=== PATIENT | female | born 1930 | race Asian ===

== ENCOUNTER 2016-09-28 15:23 | Inpatient (IN) | payer OTHER ==
[~2016-09-28] VITALS: Ht 154.9 cm; Wt 53.8 kg
[~2016-09-28 15:23] MED LIST: ACET-784 PO; ASCO100T12 PO; ASPI-556 PO; GLUC1TAB64 PO; HYDR25TA PO; LISI40TA4 PO; MULT1TAB28 PO; OMEG10005 PO; VITA100C5 PO
[2016-09-28] MEDS ORDERED: APIX2.5T PO (16:02)
[2016-09-28] MEDS ORDERED: SODIUM CHLORIDE 0.9% 1,000 ML IV ONE (16:15)
[2016-09-28 16:16] LABS: GLUCOSE,POINT OF CARE 168 MG/DL (70-110)
[2016-09-28 16:38] LABS: BASOPHILS % (AUTO) 1.3 % (0.0-2.0); EOSINOPHILS % (AUTO) 11.2 % (1.0-6.0); HEMATOCRIT 34.5 % (36-46); HEMOGLOBIN 11.2 g/dL (12.0-16.0); LYMPHOCYTES # (AUTO) 1.3 K/uL (1.0-4.8); LYMPHOCYTES % (AUTO) 22.7 % (22.0-44.0); MEAN CORPUSCULAR HGB CONC 32.4 G/dL (31.0-37.0); MEAN CORPUSCULAR VOLUME 99 fL (80-100); MONOCYTES # (AUTO) 0.4 K/uL (0.1-1.0); MONOCYTES % (AUTO) 6.1 % (2.0-9.0); NEUTROPHILS # (AUTO) 3.4 K/uL (1.8-7.7); NEUTROPHILS % (AUTO) 58.7 % (40.0-70.0); PLATELET COUNT (AUTO) 167 K/uL (150-450); RED BLOOD CELL COUNT(AUTO) 3.49 MIL/uL (4.00-5.20); RED CELL DISTRIBUTION WIDTH 14.5 % (11.5-14.5); WHITE BLOOD COUNT (AUTO) 5.8 K/uL (4.5-11.0)
[2016-09-28 16:50] LABS: ANION GAP 3 mmol/L (8-16); CALCIUM, TOTAL 8.5 mg/dL (8.8-10.5); CARBON DIOXIDE 28 mmol/L (22-29); CHLORIDE 107 mmol/L (98-107); CREATININE 1.41 mg/dL (0.60-1.30); GLOMERULAR FILTR. RATE CALC 35 mL/min (>60); POTASSIUM 4.2 mmol/L (3.5-5.1); SODIUM SERUM 138 mmol/L (136-145); UREA NITROGEN, BLOOD 27 mg/dL (7-18)
[2016-09-28 16:52] LABS: INR 1.1 (0.9-1.1); PROTHROMBIN TIME 11.3 SEC (9.4-11.6)
[2016-09-28 16:55] LABS: ALANINE AMINOTRANSFERASE 14 U/L (12-78); ALBUMIN 2.9 g/dL (3.4-5.0); ASPARTATE AMINOTRANSFERASE 14 U/L (15-37); BILIRUBIN,TOTAL 0.2 mg/dL (0.1-1.0); CREATINE KINASE, TOTAL 21 U/L (26-192); TOTAL PROTEIN, SERUM 6.8 g/dL (6.4-8.2)
[2016-09-28 16:58] LABS: TROPONIN I < 0.02 ng/mL (0.00-0.05)
[2016-09-28 17:09] LABS: AMMONIA < 10 umol/L (11-32)
[2016-09-28 17:14] LABS: B-TYPE NATRIURETIC PEPTIDE 117 pg/mL (0-100)
[2016-09-28 18:33] LABS: APPEARANCE,URINE TURBID (CLEAR); GLUCOSE, URINE (UA) NEGATIVE (NEGATIVE); KETONES,URINE NEGATIVE (NEGATIVE); LEUKOCYTE ESTERASE ,URINE LARGE (NEGATIVE); OCCULT BLOOD,URINE SMALL (NEGATIVE); PH,URINE 6.5 (5.0-8.0); PROTEIN,URINE TRACE (NEGATIVE)
[2016-09-28 18:34] LABS: ADD UA MICROSCOPIC YES
[2016-09-28 18:35] LABS: SQUAMOUS EPITHELIAL CELL,UR Few /LPF (None Seen); WBC,URINE >100 /HPF (0-5)
[2016-09-28] MEDS ORDERED: LEVOFLOXACIN 500 MG/D5% WATER 100 ML IV ONE (19:00)
[2016-09-28] MEDS ORDERED: ONDANSETRON HCL 4 MG/2 ML VIAL IVP PRN (19:45)
[2016-09-28] MEDS ORDERED: ACETAMINOPHEN 325 MG TABLET PO PRN ×2 (19:45→22:00)
[2016-09-28] MEDS ORDERED: 0.9% SODIUM CHLORIDE 10 ML SYRINGE IVP PRN (19:45)
[2016-09-28 20:49] VITALS: BP 133/61
[2016-09-28] MEDS: APIXABAN 2.5 MG TABLET PO SCH (22:42)
[2016-09-28 23:45] VITALS: BP 138/64
[2016-09-28] MEDS: HEPARIN SODIUM,PORCINE 5,000 UNITS/ML VIAL SQ SCH (23:56)
[2016-09-29] VITALS (8 sets, daily range): BP systolic 120–157; BP diastolic 40–90
[2016-09-29 07:37] LABS: BASOPHILS % (AUTO) 0.6 % (0.0-2.0); EOSINOPHILS % (AUTO) 9.2 % (1.0-6.0); HEMOGLOBIN 10.8 g/dL (12.0-16.0); LYMPHOCYTES # (AUTO) 2.9 K/uL (1.0-4.8); LYMPHOCYTES % (AUTO) 32.8 % (22.0-44.0); MEAN CORPUSCULAR HEMOGLOBIN 32.2 pg (26.0-34.0); MEAN CORPUSCULAR HGB CONC 32.8 G/dL (31.0-37.0); MEAN CORPUSCULAR VOLUME 98 fL (80-100); MONOCYTES # (AUTO) 0.5 K/uL (0.1-1.0); MONOCYTES % (AUTO) 5.8 % (2.0-9.0); NEUTROPHILS # (AUTO) 4.6 K/uL (1.8-7.7); NEUTROPHILS % (AUTO) 51.6 % (40.0-70.0); PLATELET COUNT (AUTO) 147 K/uL (150-450); RED BLOOD CELL COUNT(AUTO) 3.36 MIL/uL (4.00-5.20); RED CELL DISTRIBUTION WIDTH 14.1 % (11.5-14.5); WHITE BLOOD COUNT (AUTO) 8.9 K/uL (4.5-11.0)
[2016-09-29 07:59] LABS: CALCIUM, TOTAL 8.7 mg/dL (8.8-10.5); CREATININE 1.13 mg/dL (0.60-1.30)
[2016-09-29] MEDS ORDERED: VITAMIN E 100 UNIT PO SCH (09:00)
[2016-09-29] MEDS ORDERED: ASCORBIC ACID 100 MG PO SCH (09:00)
[2016-09-29] MEDS: LISINOPRIL 20 MG TABLET PO SCH (09:48)
[2016-09-29] MEDS: MULTIVITAMINS, THERAPEUTIC TABLET PO SCH (09:48)
[2016-09-29] MEDS: HYDROCHLOROTHIAZIDE 25 MG TABLET PO SCH (09:48)
[2016-09-29] MEDS: APIXABAN 2.5 MG TABLET PO SCH (09:48)
[2016-09-29] MEDS: ASPIRIN 81 MG EC TABLET PO SCH (09:48)
[2016-09-29] MEDS: FISH OIL/OMEGA-3 FATTY ACIDS 500 MG CAPSULE PO SCH (09:48)
[2016-09-29] MEDS: HEPARIN SODIUM,PORCINE 5,000 UNITS/ML VIAL SQ SCH ×2 (09:49→16:00)
[2016-09-29 12:36] LABS: THYROID STIMULATING HORMONE 3.45 uIU/mL (0.36-3.74)
[2016-09-29] MEDS: CHONDROITIN PO SCH (12:45)
[2016-09-29] MEDS: GLUCOSAMINE PO SCH (12:45)
[2016-09-29 21:42] LABS: GLUCOSE,POINT OF CARE 172 MG/DL (70-110)
[2016-09-29] MEDS: CefTRIAXone 1 GM/DEXTROSE 50 ML IV SCH (22:02)
[2016-09-30] MEDS: HEPARIN SODIUM,PORCINE 5,000 UNITS/ML VIAL SQ SCH ×4 (01:45→16:00)
[2016-09-30 04:40] VITALS: BP 131/58
[2016-09-30 07:18] VITALS: BP 130/66
[2016-09-30] MEDS: GLUCOSAMINE PO SCH (09:12)
[2016-09-30] MEDS: MULTIVITAMINS, THERAPEUTIC TABLET PO SCH (09:12)
[2016-09-30] MEDS: CHONDROITIN PO SCH (09:12)
[2016-09-30] MEDS: FISH OIL/OMEGA-3 FATTY ACIDS 500 MG CAPSULE PO SCH (09:12)
[2016-09-30] MEDS: HYDROCHLOROTHIAZIDE 25 MG TABLET PO SCH (09:12)
[2016-09-30] MEDS: ASPIRIN 81 MG EC TABLET PO SCH (09:12)
[2016-09-30 11:47] VITALS: BP 126/62
[2016-09-30] MEDS: LISINOPRIL 20 MG TABLET PO SCH (13:18)
[2016-09-30 15:50] VITALS: BP 138/70
[2016-09-30 19:40] VITALS: BP 136/69
[2016-09-30] MEDS: CefTRIAXone 1 GM/DEXTROSE 50 ML IV SCH (20:19)
[2016-09-30 23:31] VITALS: BP 159/69
[2016-10-01 04:58] VITALS: BP 137/61
[2016-10-01 06:07] LABS: GLUCOSE,POINT OF CARE 100 MG/DL (70-110)
[2016-10-01 07:38] VITALS: BP 155/76
[2016-10-01] MEDS: HEPARIN SODIUM,PORCINE 5,000 UNITS/ML VIAL SQ SCH ×3 (07:56→15:39)
[2016-10-01] MEDS: ASPIRIN 81 MG EC TABLET PO SCH (07:57)
[2016-10-01] MEDS: FISH OIL/OMEGA-3 FATTY ACIDS 500 MG CAPSULE PO SCH (07:57)
[2016-10-01] MEDS: GLUCOSAMINE PO SCH (07:57)
[2016-10-01] MEDS: CHONDROITIN PO SCH (07:57)
[2016-10-01] MEDS: MULTIVITAMINS, THERAPEUTIC TABLET PO SCH (07:58)
[2016-10-01] MEDS: LISINOPRIL 20 MG TABLET PO SCH (07:58)
[2016-10-01] MEDS: HYDROCHLOROTHIAZIDE 25 MG TABLET PO SCH (07:58)
[2016-10-01 11:49] VITALS: BP 142/68
[2016-10-01] MEDS ORDERED: CEFT1PB IV (14:26)
[2016-10-01] MEDS ORDERED: HEPA500035 SQ (14:27)
[2016-10-01] MEDS ORDERED: ACET-2247 PO (14:28)
[2016-10-01 16:45] VITALS: BP 99/55
[2016-10-04 21:48] LABS: GLUCOSE COMMENT 1 Received Meds; GLUCOSE,POINT OF CARE 156 MG/DL (70-110)
== END 2016-10-01 16:55 | disposition short-term general hospital (02) | DRG 308 ==
LOC: EMS 15:25 → 5S 19:30
PROVIDERS: ADMIT Family Medicine; ATTEND Family Medicine
DX: I48.0 Paroxysmal atrial fibrillation (principal); G93.41 Metabolic encephalopathy; N39.0 Urinary tract infection, site not specified; R55 Syncope and collapse; E86.0 Dehydration; I44.1 Atrioventricular block, second degree; E11.9 Type 2 diabetes mellitus without complications; I49.8 Other specified cardiac arrhythmias; I10 Essential (primary) hypertension; M19.90 Unspecified osteoarthritis, unspecified site; Z79.01 Long term (current) use of anticoagulants; Z79.84 Long term (current) use of oral hypoglycemic drugs; Z79.82 Long term (current) use of aspirin; Z79.899 Other long term (current) drug therapy
CPT/HCPCS: 70450; 82962; 84443; 87040; 87086; 93005; 93306; 96361; 96365; 99285; J0696; J1644; J1956; J7030